=== PATIENT | female | born 1990 | race Two or more races ===

== ENCOUNTER 2016-10-22 19:46 | Emergency (ER) | payer OTHER ==
--- NOTE | 2016-10-22 21:12 | PHYS DOC ---
Past Medical History Past Medical History: No Pertinent History Past Surgical History: No Surgical History Alcohol Use: None Drug Use: None Adult General Chief Complaint Chief Complaint: FLANK PAIN HPI HPI Patient is a 25 year old female who presents with left flank pain. Patient reports for the past 2 days she has had stabbing pain in her left flank that is worse with movement. No clear inciting or mitigating factors. She has tried some ibuprofen with insufficient relief. No urinary symptoms, no nausea or vomiting. No other acute complaints. No prior similar episodes. She is on her menstrual cycle. Review of Systems Review of Systems Constitutional: Denies fever or chills Eyes: Denies change in visual acuity or eye pain HENT: Denies nasal congestion or sore throat Respiratory: Denies cough or shortness of breath Cardiovascular: Denies chest pain GI: Denies abdominal pain, nausea, vomiting, bloody stools or diarrhea : Denies dysuria or hematuria Musculoskeletal: L flank pain Integument: Denies rash or skin lesions Neurologic: Denies headache, focal weakness or sensory changes Current Medications Current Medications Current Medications Medications (Trade) Dose Ordered Sig/Kiran Start Time Stop Time Status Last Admin Dose Admin Morphine Sulfate 2 mg 1X ONCE 10/22/16 21:30 10/22/16 21:31 DC Sodium Chloride (Iv Sodium Chloride 0.9% 1000ml Bag) 1,000 ml @ 1,000 mls/hr Q1H 10/22/16 21:30 10/22/16 22:29 DC 10/22/16 21:30 1,000 MLS/HR Allergies Allergies Allergies Coded Allergies Type Severity Reaction Last Updated Verified No Known Drug Allergies 03/30/14 No Physical Exam Physical Exam Constitutional: Well developed, well nourished, no acute distress, non-toxic appearance HENT: Normocephalic, atraumatic, bilateral external ears normal Eyes: EOMI, conjunctiva normal, no discharge Neck: Normal range of motion, no stridor Cardiovascular: Heart rate normal, regular rhythm, no murmur Lungs & Thorax: Bilateral breath sounds clear to auscultation Abdomen: Bowel sounds normal, soft, non-distended, mild LUQ TTP without guarding or rebound Skin: Warm, dry, no erythema, no rash Back: L CVA tenderness, no skin lesion or deformity Extremities: No obvious deformity, no edema Neurologic: Alert and oriented X 3, no gross deficits noted Current Patient Data Vital Signs Vital Signs Date Time Temp Pulse Resp B/P Pulse Ox O2 Delivery O2 Flow Rate FiO2 10/22/16 21:37 92 18 111/75 100 Room Air 10/22/16 20:16 98.3 98.3 Lab Values Laboratory Tests Test 10/22/16 20:14 10/22/16 21:31 Urine Collection Type Unknown Urine Color Yellow Urine Clarity Clear Urine pH 6.5 Urine Specific [place] 1.010 Urine Protein Negativemg/dL (NEG-TRACE) Urine Glucose (UA) Negativemg/dL (NEG) Urine Ketones (Stick) Negativemg/dL (NEG) Urine Blood Moderate (NEG) Urine Nitrite Negative (NEG) Urine Bilirubin Negative (NEG) Urine Urobilinogen Dipstick 0.2mg/dL (0.2 mg/dL) Urine Leukocyte Esterase Moderate (NEG) Urine RBC Occ/HPF (0-2) Urine WBC 5-10/HPF (0-4) Urine Squamous Epithelial Cells Mod/LPF Urine Bacteria Moderate/HPF (0-FEW) Urine Test Negative (NEG) White Blood Count 5.5x10^3/uL (4.0-11.0) Red Blood Count 4.21x10^6/uL (3.50-5.40) Hemoglobin 12.9g/dL (12.0-15.5) Hematocrit 38.0% (36.0-47.0) Mean Corpuscular Volume 90fL (79-100) Mean Corpuscular Hemoglobin 31pg (25-35) Mean Corpuscular Hemoglobin Concent 34g/dL (31-37) Red Cell Distribution Width 13.3% (11.5-14.5) Platelet Count 228x10^3/uL (140-400) Neutrophils (%) (Auto) 42% (31-73) Lymphocytes (%) (Auto) 48% (24-48) Monocytes (%) (Auto) 7% (0-9) Eosinophils (%) (Auto) 1% (0-3) Basophils (%) (Auto) 1% (0-3) Neutrophils # (Auto) 2.3x10^3uL (1.8-7.7) Lymphocytes # (Auto) 2.6x10^3/uL (1.0-4.8) Monocytes # (Auto) 0.4x10^3/uL (0.0-1.1) Eosinophils # (Auto) 0.1x10^3/uL (0.0-0.7) Basophils # (Auto) 0.1x10^3/uL (0.0-0.2) Sodium Level 142mmol/L (136-145) Potassium Level 3.5mmol/L (3.5-5.1) Chloride Level 104mmol/L (98-107) Carbon Dioxide Level 30mmol/L (21-32) Anion Gap 8 (6-14) Blood Urea Nitrogen 11mg/dL (7-20) Creatinine 0.6mg/dL (0.6-1.0) Estimated GFR (Cockcroft-Gault) 120.8 BUN/Creatinine Ratio 18 (6-20) Glucose Level 92mg/dL (70-99) Calcium Level 8.8mg/dL (8.5-10.1) Total Bilirubin 0.5mg/dL (0.2-1.0) Aspartate Amino Transferase (AST) 13U/L (15-37) L Alanine Aminotransferase (ALT) 15U/L (14-59) Alkaline Phosphatase 43U/L (46-116) L Total Protein 7.5g/dL (6.4-8.2) Albumin 4.5g/dL (3.4-5.0) Albumin/Globulin Ratio 1.5 (1.0-1.7) Lipase 189U/L (73-393) Laboratory Tests 10/22/16 21:31 Laboratory Tests 10/22/16 21:31 EKG EKG [] Radiology/Procedures Radiology/Procedures CT A/P: Impression: Unremarkable noncontrast CT of the abdomen and pelvis. No urinary tract calculi or obstruction is identified. Course & Med Decision Making Course & Med Decision Making Pertinent Labs and Imaging studies reviewed. (See chart for details) Patient is 25-year-old female who presents with left flank pain. Differential includes musculoskeletal pain, kidney stone. Will obtain labs, UA, urine screen, CT abdomen/pelvis. IV fluid bolus, small dose of pain meds ordered for patient symptoms. Imaging results as above. Blood work unremarkable. UA equivocal for UTI; as patient has no symptoms of UTI will not treat at this time but will await culture. Discussed results with patient, who is feeling better at this time. Patient discharged home with prescription for naproxen and Flexeril, instructions for follow-up, return precautions. Dragon Disclaimer Dragon Disclaimer This electronic medical record was generated, in whole or in part, using a voice recognition dictation system. Departure Departure Impression: Primary Impression: Left flank pain Disposition: HOME, SELF-CARE Condition: IMPROVED Referrals: NO PCP (PCP) Patient Instructions: Back Pain, Adult, Flank Pain Additional Instructions: Thank you for allowing us to provide care today in the Emergency Department. Take the provided medication as directed. Use caution when taking the muscle relaxant as it can make you drowsy. Schedule a follow up appointment with your primary care doctor. Return promptly to the Emergency Department if you develop any new or concerning symptoms. Scripts Cyclobenzaprine Hcl 10 Mg [id number] Mg PO TID PRN MUSCLE SPASMS #15 TAB Prov:ANDREW BO MD 10/22/16 Naproxen 375 Mg [id number] Mg PO BID PRN PAIN #20 Prov:ANDREW BO MD 10/22/16 ANDREW BO MD Oct 22, 2016 21:13
[2016-10-22 21:24] LABS: NEG OBC UR NEG; POS OBC UR POS
[2016-10-22 21:25] LABS: BILIRUBIN,URINE NEGATIVE (NEG); GLUCOSE,URINE NEGATIVE (NEG); NITRITE,URINE NEGATIVE (NEG); PH,URINE 6.5; PROTEIN,URINE NEGATIVE (NEG-TRACE); UROBILINOGEN,URINE 0.2 mg/dL (0.2 mg/dL)
[2016-10-22] MEDS ORDERED: MORPHINE SULFATE 2 MG/ML DISP.SYRIN. IV ONE (21:30)
[2016-10-22] MEDS ORDERED: MORPHINE SULFATE 4 MG/ML DISP.SYRIN. IV ONE (21:30)
[2016-10-22] MEDS ORDERED: IV NORMAL SALINE 1000ML BAG 1,000 ML IV SCH (21:30)
[2016-10-22 21:32] LABS: BACTERIA,URINE MODERATE /HPF (0-FEW); RBC,URINE OCC /HPF (0-2); SQUAMOUS EPITHELIAL CELL,UR MOD /LPF
[2016-10-22 21:37] VITALS: BP 111/75
[2016-10-22 21:40] LABS: BASO # 0.1 x10^3/uL (0.0-0.2); BASO % 1 % (0-3); EOS % 1 % (0-3); HEMOGLOBIN 12.9 g/dL (12.0-15.5); LYMPH # 2.6 x10^3/uL (1.0-4.8); LYMPH % 48 % (24-48); MEAN CORPUSCULAR HEMOGLOBIN 31 pg (25-35); MEAN CORPUSCULAR HGB CONC 34 g/dL (31-37); MEAN CORPUSCULAR VOLUME 90 fL (79-100); MONO % 7 % (0-9); NEUT % 42 % (31-73); PLATELET COUNT 228 x10^3/uL (140-400); RED BLOOD COUNT 4.21 x10^6/uL (3.50-5.40); RED CELL DISTRIBUTION WIDTH 13.3 % (11.5-14.5); WHITE BLOOD COUNT 5.5 x10^3/uL (4.0-11.0)
[2016-10-22 21:53] LABS: CALCIUM 8.8 mg/dL (8.5-10.1); CREATININE 0.6 mg/dL (0.6-1.0); GFR 120.8; POTASSIUM 3.5 mmol/L (3.5-5.1)
[2016-10-22 21:58] LABS: ALBUMIN 4.5 g/dL (3.4-5.0); ALBUMIN/GLOBULIN RATIO 1.5 (1.0-1.7); TOTAL BILIRUBIN 0.5 mg/dL (0.2-1.0); TOTAL PROTEIN 7.5 g/dL (6.4-8.2)
--- NOTE | 2016-10-22 21:58 | RAD ---
CT abdomen pelvis without contrast Indication: Severe left flank pain Axial imaging through the abdomen and pelvis was performed without contrast. The lung bases are clear. The liver and gallbladder are unremarkable. The pancreas and spleen are unremarkable. No adrenal mass is detected. No renal calculi are identified. No definite ureteral calculi are detected. The small and large bowel loops are normal caliber. There is no ascites. The uterus appears to be moderately enlarged. The bladder is unremarkable. Impression: Unremarkable noncontrast CT of the abdomen and pelvis. No urinary tract calculi or obstruction is identified. Electronically signed by: Moi Vergara MD (Oct 22, 2016 21:57:48)
[2016-10-22] MEDS ORDERED: CYCL10TA2 PO (22:28)
[2016-10-22] MEDS ORDERED: NAPR375T3 PO (22:28)
== END 2016-10-22 22:52 | disposition home or self-care (01) ==
LOC: ER 19:46
DX: R10.12 Left upper quadrant pain (principal)
CPT/HCPCS: 36415; 74176; 80053; 81001; 81025; 83690; 85027; 87086; 96360; 99285; J7030

== ENCOUNTER 2017-02-24 23:37 | Emergency (ER) | payer OTHER ==
[~2017-02-24] VITALS: Ht 154.9 cm; Wt 54.4 kg
[~2017-02-24 23:37] MED LIST: CYCL10TA2 PO; NAPR375T3 PO
[2017-02-25] MEDS ORDERED: IBUPROFEN 600 MG TABLET. PO ONE (00:45)
[2017-02-25] MEDS ORDERED: HYDROcodone/APAP 5/325MG 1 TAB TABLET PO ONE (00:45)
[2017-02-25] MEDS ORDERED: CYCLOBENZAPRINE 10 MG TABLET. PO ONE (00:45)
[2017-02-25 00:49] LABS: NEG OBC UR NEG; POS OBC UR POS
--- NOTE | 2017-02-25 02:11 | RAD ---
Chest PA and left rib series 2 views: Reason for examination: Fell with left rib pain posteriorly. The heart size is normal. Mediastinum is unremarkable. Lung sung are clear. No acute bony abnormalities are seen. No left rib fracture is seen. Impression: No acute cardiopulmonary disease. No left rib abnormalities evident. Electronically signed by: Annie Meyer MD (02/25/2017 2:07 AM)
[2017-02-25] MEDS ORDERED: IBUP-1007 PO (02:16)
[2017-02-25] MEDS ORDERED: CYCL5TAB PO (02:16)
[2017-02-25] MEDS ORDERED: HYDR-971 PO (02:16)
--- NOTE | 2017-02-25 02:16 | PHYS DOC ---
Past Medical History Past Medical History: No Pertinent History Past Surgical History: No Surgical History Alcohol Use: None Drug Use: None Adult General Chief Complaint Chief Complaint: RIB PAIN HPI HPI Patient is a 26 year old female who presents with rib pain after a fall. States she lost her footing while walking down a flight of stairs yesterday, no lightheadedness or syncope, but stumbled/fell down 8 steps, hitting her left side against the steps. She denies head trauma or loss of consciousness. Complains of left sided rib pain worse with deep breathing. Denies abdominal pain, neck pain, back pain, extremity pain. She took tylenol & ibuprofen at home without relief of symptoms. Review of Systems Review of Systems Constitutional: Denies fever or chills HENT: Denies nasal congestion or sore throat Respiratory: Denies cough or shortness of breath Cardiovascular: Denies chest pain GI: Denies abdominal pain, nausea, vomiting Musculoskeletal: Denies back pain or joint pain. reports rib pain Integument: Denies rash Neurologic: Denies headache, focal weakness or sensory changes Current Medications Current Medications Current Medications Medications (Trade) Dose Ordered Sig/Kiran Start Time Stop Time Status Last Admin Dose Admin Acetaminophen/ Hydrocodone Bitart (Lortab 5/325) 2 tab 1X ONCE 02/25/17 00:45 02/25/17 00:46 DC 02/25/17 01:00 2 TAB Cyclobenzaprine HCl (Flexeril) 10 mg 1X ONCE 02/25/17 00:45 02/25/17 00:46 DC 02/25/17 01:00 10 MG Ibuprofen (Motrin) 600 mg 1X ONCE 02/25/17 00:45 02/25/17 00:46 DC 02/25/17 00:59 600 MG Allergies Allergies Allergies Coded Allergies Type Severity Reaction Last Updated Verified No Known Drug Allergies 03/30/14 No Physical Exam Physical Exam Constitutional: Well developed, well nourished, no acute distress, non-toxic appearance. HENT: Normocephalic, atraumatic, bilateral external ears normal, oropharynx moist, nose normal. Eyes: conjunctiva normal, no discharge. Neck: supple, no stridor. no midline c-spine tenderness Cardiovascular: RRR, no murmurs, no edema. Lungs & Thorax: LCTAB, no wheezing, no respiratory distress. tender with palpation over ribs 3-8 anteriorly & laterally without ecchymosis or crepitus Abdomen: soft, nontender, nondistended. Skin: Warm, dry, no erythema, no rash. Back: No spinal or CVA tenderness. Extremities: No deformity or tenderness, no edema. Neurologic: Alert and oriented X 3, no focal deficits noted. Current Patient Data Vital Signs Vital Signs Date Time Temp Pulse Resp B/P (MAP) Pulse Ox O2 Delivery O2 Flow Rate FiO2 02/25/17 02:38 67 16 114/74 (87) 100 Room Air 02/25/17 00:34 98.4 98.4 Lab Values Laboratory Tests Test 02/24/17 23:42 02/25/17 00:34 POC Urine HCG, Qualitative Hcg negative (Negative) Urine Test Negative (NEG) EKG EKG [] Radiology/Procedures Radiology/Procedures PROCEDURE: RIBS LEFT AND PA CHEST Chest PA and left rib series 2 views: Reason for examination: Fell with left rib pain posteriorly. The heart size is normal. Mediastinum is unremarkable. Lung sung are clear. No acute bony abnormalities are seen. No left rib fracture is seen. Impression: No acute cardiopulmonary disease. No left rib abnormalities evident. Electronically signed by: Annie Rivera MD (02/25/2017 2:07 AM) DICTATED and SIGNED BY: ANNIE RIVERA MD DATE: 02/25/17205[] Course & Med Decision Making Course & Med Decision Making Pertinent Labs and Imaging studies reviewed. (See chart for details) The patient presents iwth rib pain after a fall. Gave pain medication; she has a ride home. XR negative for rib fracture or pneumothorax. Recommend rest, ice /heat, ibuprofen q8 hours, norco for severe pain & flexeril for muscle spasm, no drinking alcohol or driving while taking these medications. Follow up with primary care in 1 week if not improving. Come back for severe shortness of breath or otherwise worsening condition. Discharged home in stable condition. [] Dragon Disclaimer Dragon Disclaimer This electronic medical record was generated, in whole or in part, using a voice recognition dictation system. Departure Departure Impression: Primary Impression: Contusion of rib Disposition: HOME, SELF-CARE Condition: STABLE Referrals: GERARDO BRAND MD Patient Instructions: Rib Contusion Additional Instructions: You worsen in the emergency department today for rib pain. The x-ray did not show any rib fracture. You may still be sore for a week or more. Take ibuprofen every 8 hours. Use [place] as needed for severe pain and Flexeril for muscle spasm. No drinking alcohol or driving while taking these medications. Follow-up as needed with Dr. Brand in primary care clinic if still having severe pain in one week. Return to the emergency department for severe shortness of breath or otherwise worsening condition. Scripts Cyclobenzaprine Hcl (CYCLOBENZAPRINE HCL) 5 Mg Tablet 1 TAB PO TID Y for MUSCLE SPASMS, #10 TAB Prov: WILDER LIEBERMAN MD 02/25/17 Hydrocodone/Apap 5-325 (NORCO 5-325 TABLET) 1 Each Tablet 1 TAB PO PRN Q6HRS Y for PAIN, #10 TAB 0 Refills Prov: WILDER LIEBERMAN MD 02/25/17 Ibuprofen (IBUPROFEN) 600 Mg Tablet 600 MG PO PRN Q8HRS Y for INFLAMMATION, #15 TAB Prov: WILDER LIEBERMAN MD 02/25/17 WILDER LIEBERMAN MD Feb 25, 2017 02:16
[2017-02-25 02:38] VITALS: BP 114/74
== END 2017-02-25 02:39 | disposition home or self-care (01) ==
LOC: ER 23:37
DX: S20.212A Contusion of left front wall of thorax, initial encounter (principal); W10.8XXA Fall (on) (from) other stairs and steps, initial encounter; Y93.01 Activity, walking, marching and hiking; Y92.89 Other specified places as the place of occurrence of the external cause; Y99.8 Other external cause status
CPT/HCPCS: 71101; 81025; 84703; 99285-25

== ENCOUNTER → 2017-12-29 | Outpatient (CLI) | payer OTHER | END | disposition home or self-care (01) | LOC: US 15:43 | DX: Z34.93 Encounter for supervision of normal pregnancy, unspecified, third trimester (principal); Z3A.32 32 weeks gestation of pregnancy | CPT/HCPCS: 76805 ==

== ENCOUNTER 2018-02-18 13:19 | Emergency (ER) | payer OTHER | END 2018-02-18 14:25 | disposition home or self-care (01) | LOC: ER 13:19 | DX: K64.9 Unspecified hemorrhoids (principal) | CPT/HCPCS: 99281 ==

== ENCOUNTER 2018-08-12 00:54 | Emergency (ER) | payer OTHER ==
[~2018-08-12] VITALS: Ht 152.4 cm; Wt 61.2 kg
[~2018-08-12 00:54] MED LIST changes: +CYCL5TAB PO; +HYDR-3164 PO; +IBUP-1007 PO; +NAPR-514 PO; +NAPR-695 PO; -NAPR375T3 PO
--- NOTE | 2018-08-12 01:20 | PHYS DOC ---
Past Medical History Past Medical History: No Pertinent History Past Surgical History: No Surgical History Alcohol Use: None Drug Use: None Adult General Chief Complaint Chief Complaint: ANXIETY/PANIC ATTACK HPI HPI Patient is a 27 year old female who presents with anxiety, tingling all over, and generalized weakness. This started approximately 2200 on 07/11/2018. Patient denies any identifiable trigger. Denies any suicidal or homicidal ideation. Denies any drugs of abuse. Denies any recent fevers.[] Review of Systems Review of Systems Constitutional: Denies fever or chills [] Eyes: Denies change in visual acuity, redness, or eye pain [] HENT: Denies nasal congestion or sore throat [] Respiratory: Denies cough or shortness of breath [] Cardiovascular: No chest pain or palpitations[] GI: Denies abdominal pain, nausea, vomiting, bloody stools or diarrhea [] : Denies dysuria or hematuria [] Musculoskeletal: Denies back pain or joint pain [] Integument: Denies rash or skin lesions [] Neurologic: Denies headache, focal weakness or sensory changes [] Endocrine: Denies polyuria or polydipsia [] All other systems were reviewed and found to be within normal limits, except as documented in this note. Current Medications Current Medications Current Medications Medications (Trade) Dose Ordered Sig/Kiran Start Time Stop Time Status Last Admin Dose Admin Lorazepam (Ativan) 1 mg 1X ONCE 08/12/18 02:15 08/12/18 02:16 DC 08/12/18 02:28 1 MG Prochlorperazine Edisylate (Compazine) 5 mg 1X ONCE 08/12/18 01:30 08/12/18 01:32 DC 08/12/18 01:38 5 MG Sodium Chloride 1,000 ml @ 125 mls/hr 1X ONCE 08/12/18 01:30 08/12/18 09:29 Allergies Allergies Allergies Coded Allergies Type Severity Reaction Last Updated Verified No Known Drug Allergies 03/30/14 No Physical Exam Physical Exam Constitutional: Well developed, well nourished, no acute distress, non-toxic appearance. [] HENT: Normocephalic, atraumatic, bilateral external ears normal, oropharynx moist, no oral exudates, nose normal. [] Eyes: PERRLA, EOMI, conjunctiva normal, no discharge. [] Neck: Normal range of motion, no tenderness, supple, no stridor. [] Cardiovascular:Heart rate is tachycardic with regular rhythm, no murmur [] Lungs & Thorax: Bilateral breath sounds clear to auscultation [] Abdomen: Bowel sounds normal, soft, no tenderness, no masses, no pulsatile masses. [] Skin: Warm, dry, no erythema, no rash. [] Back: No tenderness, no CVA tenderness. [] Extremities: No tenderness, no cyanosis, no clubbing, ROM intact, no edema. [] Neurologic: Alert and oriented X 3, normal motor function, normal sensory function, no focal deficits noted. [] Psychologic: Affect anxious, judgement normal, mood normal. [] Current Patient Data Vital Signs Vital Signs Date Time Temp Pulse Resp B/P (MAP) Pulse Ox O2 Delivery O2 Flow Rate FiO2 08/12/18 00:54 98.0 102 20 136/80 (98) 99 Room Air 98.0 Lab Values Laboratory Tests Test 08/12/18 01:04 08/12/18 01:12 08/12/18 01:32 Urine Collection Type Clean catch Urine Color Yellow Urine Clarity Clear Urine pH 7.5 Urine Specific [place] 1.025 Urine Protein Negative mg/dL (NEG-TRACE) Urine Glucose (UA) Negative mg/dL (NEG) Urine Ketones (Stick) Negative mg/dL (NEG) Urine Blood Large (NEG) Urine Nitrite Negative (NEG) Urine Bilirubin Negative (NEG) Urine Urobilinogen Dipstick 0.2 mg/dL (0.2 mg/dL) Urine Leukocyte Esterase Small (NEG) Urine RBC 11-20 /HPF (0-2) Urine WBC 5-10 /HPF (0-4) Urine Squamous Epithelial Cells Few /LPF Urine Bacteria Moderate /HPF (0-FEW) Urine Mucus Mod /LPF Urine Opiates Screen Neg (NEG) Urine Methadone Screen Neg (NEG) Urine Barbiturates Neg (NEG) Urine Phencyclidine Screen Neg (NEG) Urine Amphetamine/Methamphetamine Neg (NEG) Urine Benzodiazepines Screen Neg (NEG) Urine Cocaine Screen Neg (NEG) Urine Cannabinoids Screen Neg (NEG) Urine Ethyl Alcohol Neg (NEG) POC Urine HCG, Qualitative Hcg negative (Negative) White Blood Count 4.7 x10^3/uL (4.0-11.0) Red Blood Count 4.42 x10^6/uL (3.50-5.40) Hemoglobin 14.0 g/dL (12.0-15.5) Hematocrit 39.9 % (36.0-47.0) Mean Corpuscular Volume 90 fL (79-100) Mean Corpuscular Hemoglobin 32 pg (25-35) Mean Corpuscular Hemoglobin Concent 35 g/dL (31-37) Red Cell Distribution Width 13.2 % (11.5-14.5) Platelet Count 189 x10^3/uL (140-400) Neutrophils (%) (Auto) 32 % (31-73) Lymphocytes (%) (Auto) 59 % (24-48) H Monocytes (%) (Auto) 8 % (0-9) Eosinophils (%) (Auto) 1 % (0-3) Basophils (%) (Auto) 1 % (0-3) Neutrophils # (Auto) 1.5 x10^3uL (1.8-7.7) L Lymphocytes # (Auto) 2.8 x10^3/uL (1.0-4.8) Monocytes # (Auto) 0.4 x10^3/uL (0.0-1.1) Eosinophils # (Auto) 0.0 x10^3/uL (0.0-0.7) Basophils # (Auto) 0.0 x10^3/uL (0.0-0.2) Prothrombin Time 12.3 SEC (11.7-14.0) Prothrombin Time INR 1.0 (0.8-1.1) POC Venous pH 7.41 (7.32-7.42) POC Venous pCO2 35 mmHg (41-51) L POC Venous pO2 56 mmHg (20-40) H Venous Blood HCO3 22 mmol/L (24-28) L POC Venous O2 Saturation ([place]ord[place]) 89 % POC FiO2 21 Sodium Level 141 mmol/L (136-145) Potassium Level 3.4 mmol/L (3.5-5.1) L Chloride Level 105 mmol/L (98-107) Carbon Dioxide Level 24 mmol/L (21-32) Anion Gap 12 (6-14) Blood Urea Nitrogen 14 mg/dL (7-20) Creatinine 0.7 mg/dL (0.6-1.0) Estimated GFR (Cockcroft-Gault) 99.6 Glucose Level 124 mg/dL (70-99) H Calcium Level 9.3 mg/dL (8.5-10.1) Magnesium Level 2.0 mg/dL (1.8-2.4) Salicylates Level < 2.8 mg/dL (2.8-20.0) L Salicylate Last Dose Date Unknown Salicylate Last Dose Time Unknown Acetaminophen Level < 2 mcg/ml (10-30) L Acetaminophen Last Dose Date Unknown Acetaminophen Last Dose Time Unknown Ethyl Alcohol Level < 10 mg/dL (0-10) Laboratory Tests 08/12/18 01:32 Laboratory Tests 08/12/18 01:32 EKG EKG EKG obtained at 0 127 shows normal sinus rhythm, normal axis, QTC of 518 ms, no ST elevations, no prolonged terminal 40 ms R-wave in lead aVR[] Radiology/Procedures Radiology/Procedures [] Course & Med Decision Making Course & Med Decision Making Pertinent Labs and Imaging studies reviewed. (See chart for details) ED course: Patient arrived, was placed in bed, in tolerate exam well. Patient was evaluated by the PAT team who agreed that there was no reason for mental health admission. Patient had improvement in her anxiety with the medications administered. Medical decision making: There is no evidence of significant toxidrome, no aspirin, Tylenol, nor alcohol ingestion. No significant electrolyte abnormality. No evidence of infection.[] Dragon Disclaimer Dragon Disclaimer This electronic medical record was generated, in whole or in part, using a voice recognition dictation system. Departure Departure Impression: Primary Impression: Anxiety attack Disposition: 01 HOME, SELF-CARE Condition: GOOD Referrals: NO PCP (PCP) Patient Instructions: Anxiety and Panic Attacks Additional Instructions: Follow-up at [facility][1] as directed by the PAT team. Return to the ER if you have thoughts of hurting herself or anyone else. Do not drink alcohol while taking these medications. No driving for the next 6 hours. Scripts Clonazepam (CLONAZEPAM) 0.5 Mg Tablet 1 TAB PO TID PRN PRN for ANXIETY / AGITATION, #15 TAB Prov: SANTINO GARCIA DO 08/12/18 SANTINO GARCIA DO Aug 12, 2018 01:20
[2018-08-12] MEDS ORDERED: PROCHLORPERAZINE 10 MG/2 ML VIAL. IV ONE (01:30)
[2018-08-12] MEDS ORDERED: IV NORMAL SALINE 1000ML BAG 1,000 ML IV SCH (01:30)
[2018-08-12] MEDS ORDERED: IV NORMAL SALINE 1000ML BAG 1,000 ML IV ONE (01:30)
[2018-08-12 01:45] LABS: BILIRUBIN,URINE NEGATIVE (NEG); CLARITY,URINE CLEAR; COLOR,URINE YELLOW; NITRITE,URINE NEGATIVE (NEG); PH,URINE 7.5; PROTEIN,URINE NEGATIVE (NEG-TRACE); UROBILINOGEN,URINE 0.2 mg/dL (0.2 mg/dL)
[2018-08-12 01:48] LABS: BASO % 1 % (0-3); EOS % 1 % (0-3); HEMATOCRIT 39.9 % (36.0-47.0); LYMPH # 2.8 x10^3/uL (1.0-4.8); LYMPH % 59 % (24-48); MEAN CORPUSCULAR HEMOGLOBIN 32 pg (25-35); MEAN CORPUSCULAR HGB CONC 35 g/dL (31-37); MEAN CORPUSCULAR VOLUME 90 fL (79-100); MONO # 0.4 x10^3/uL (0.0-1.1); MONO % 8 % (0-9); NEUT # 1.5 x10^3uL (1.8-7.7); NEUT % 32 % (31-73); PLATELET COUNT 189 x10^3/uL (140-400); RED BLOOD COUNT 4.42 x10^6/uL (3.50-5.40); RED CELL DISTRIBUTION WIDTH 13.2 % (11.5-14.5); WHITE BLOOD COUNT 4.7 x10^3/uL (4.0-11.0)
[2018-08-12 02:00] LABS: PROTHROMBIN TIME PATIENT 12.3 SEC (11.7-14.0)
[2018-08-12 02:11] LABS: BARBITURATES NEG (NEG); BENZODIAZEPINES NEG (NEG); CANNABINOIDS NEG (NEG); COCAINE NEG (NEG); METHADONE NEG (NEG); OPIATES NEG (NEG); PHENCYCLIDINE NEG (NEG)
[2018-08-12 02:15] LABS: CALCIUM 9.3 mg/dL (8.5-10.1); CREATININE 0.7 mg/dL (0.6-1.0); GFR 99.6; POTASSIUM 3.4 mmol/L (3.5-5.1)
[2018-08-12 02:20] LABS: BACTERIA,URINE MODERATE /HPF (0-FEW); SQUAMOUS EPITHELIAL CELL,UR FEW /LPF
[2018-08-12 02:22] LABS: AMPHETAMINE/METHAMPHETAMINE NEG (NEG)
[2018-08-12 02:23] LABS: ACETAMIN < 2 mcg/ml (10-30); ETHANOL < 10 mg/dL (0-10); SALIC < 2.8 mg/dL (2.8-20.0)
[2018-08-12 02:51] LABS: ISTAT HCO3 VEN 22 mmol/L (24-28); ISTAT PCO2 VEN 35 mmHg (41-51); ISTAT PH VEN 7.41 (7.32-7.42); ISTAT PO2 VEN 56 mmHg (20-40); ISTAT TCO2 VEN 23 mmol/L (21-32)
[2018-08-12 02:52] LABS: FIO2 VENOUS ISTAT 21; ISTAT SAT O2 VEN 89 %
[2018-08-12] MEDS ORDERED: CLON0.5T11 PO (03:20)
[2018-08-12 03:55] VITALS: BP 108/68
--- NOTE | 2018-08-12 06:18 | EKG ---
[facility] [address] [place] [address] Test Date: 2018-08-12 Test Time: 01:27:26 Pat Name: MELODY ZHOU Department: Room: Gender: F [employer]: : 1990 Requested By: SANTINO GARCIA Order Number: [id number] Reading MD: Measurements Intervals [place] Rate: 97 P: 2 VA: 198 QRS: 15 QRSD: 74 T: 45 QT: 404 QTc: 518 Interpretive Statements SINUS RHYTHM PROLONGED QT NO SPECIFIC ECG ABNORMALITIES RI6.01 No previous ECG available for comparison
== END 2018-08-12 03:57 | disposition home or self-care (01) ==
LOC: ER 00:54
DX: F41.9 Anxiety disorder, unspecified (principal); R20.2 Paresthesia of skin; R53.1 Weakness
CPT/HCPCS: 36415; 80048; 80307; 80329; 81001; 81025; 82803; 83735; 85025; 85610; 87086; 93005; 96374; 96375; 99284; G0480; G6039; J0780; J2060; J7030